=== PATIENT | female | born 1980 | race Two or more races ===

== ENCOUNTER 2022-03-12 10:44 | Emergency (ER) | payer MEDICAID ==
[~2022-03-12] VITALS: Ht 127 cm; Wt 68.1 kg
[2022-03-12 10:56] VITALS: BP 137/75
[2022-03-12 11:21] LABS: Basophils # (auto) 0.1 10 ^3/uL (0-0.2); Basophils % (auto) 0.8 % (0.0-2.0); Eosinophils # (auto) 0.2 10 ^3/uL (0-0.8); Eosinophils % (auto) 2.2 % (0.0-7.0); Hematocrit 39.3 % (36.0-46.0); Hemoglobin 12.9 g/dL (12.2-16.2); Lymphocytes # (auto) 1.9 10 ^3/uL (0.4-5.4); Lymphocytes % (auto) 21.4 % (10.0-50.0); Mean Corpuscular Hemoglobin 28.5 pg (28.0-32.0); Mean Corpuscular Hgb Conc. 32.8 g/dL (32.0-36.0); Mean Corpuscular Volume 86.8 fL (80.0-100.0); Monocytes # (auto) 0.6 10 ^3/uL (0-1.3); Monocytes % (auto) 6.5 % (0.0-12.0); Neutrophils # (auto) 6.1 10 ^3/uL (1.6-8.6); Neutrophils % (auto) 69.1 % (37.0-80.0); Nucleated Red Blood Cells % 0.1 %; Red Blood Cells 4.53 10^6/uL (4.0-5.20); Red Cell Distribution Width 14.9 % (11.8-14.3); White Blood Cell 8.8 10^3/uL (4.4-10.8)
== END 2022-03-12 15:26 | disposition home or self-care (01) ==
LOC: ER 10:46
DX: O20.0 Threatened abortion (principal); Z3A.00 Weeks of gestation of pregnancy not specified
CPT/HCPCS: 36415; 76801; 76817; 84702; 85025

== ENCOUNTER 2022-04-04 23:14 | Emergency (ER) | payer MEDICAID ==
[~2022-04-04] VITALS: Ht 152.4 cm; Wt 150.0 kg
[2022-04-05 00:42] LABS: Urine Blood 3+ /uL (Negative); Urine Specific Gravity 1.009 (1.001-1.035)
[2022-04-05 00:53] LABS: Urine Bacteria FEW /hpf (None Seen)
[2022-04-05 02:13] LABS: Basophils # (auto) 0.1 10 ^3/uL (0-0.2); Basophils % (auto) 0.6 % (0.0-2.0); Eosinophils # (auto) 0.2 10 ^3/uL (0-0.8); Eosinophils % (auto) 2.5 % (0.0-7.0); Hematocrit 36.6 % (36.0-46.0); Lymphocytes # (auto) 2.1 10 ^3/uL (0.4-5.4); Lymphocytes % (auto) 24.2 % (10.0-50.0); Mean Corpuscular Hemoglobin 28.1 pg (28.0-32.0); Mean Corpuscular Hgb Conc. 32.9 g/dL (32.0-36.0); Mean Corpuscular Volume 85.4 fL (80.0-100.0); Monocytes # (auto) 0.6 10 ^3/uL (0-1.3); Monocytes % (auto) 6.4 % (0.0-12.0); Neutrophils # (auto) 5.8 10 ^3/uL (1.6-8.6); Neutrophils % (auto) 66.3 % (37.0-80.0); Nucleated Red Blood Cells % 0.1 %; Red Blood Cells 4.29 10^6/uL (4.0-5.20); Red Cell Distribution Width 14.7 % (11.8-14.3); White Blood Cell 8.7 10^3/uL (4.4-10.8)
[2022-04-05 02:28] LABS: INR 0.95 (0.9-1.15); Partial Thromboplastin Time 25.9 sec (24.6-33.4)
[2022-04-05 02:30] LABS: Albumin 3.6 g/dL (3.4-5.0); BUN/Creatinine Ratio 14.1; Calcium 9.1 mg/dL (8.5-10.1)
[2022-04-05 02:32] LABS: Bilirubin, Total 0.2 mg/dL (0.2-1.0); Total Protein 7.4 g/dL (6.4-8.2)
[2022-04-05 03:42] VITALS: BP 133/75
[2022-04-05 04:01] LABS: Alcohol, Urine < 3.0 mg/dL (0-10); Amphetamine Screen, Urine NEGATIVE (NEGATIVE); Barbiturate Scree,Urine NEGATIVE (NEGATIVE); Benzodiazephine Screen, Urine NEGATIVE (NEGATIVE); Cannabinoid Screen, Urine NEGATIVE (NEGATIVE); Cocaine Screen, Urine NEGATIVE (NEGATIVE); Opiate Scree,Urine NEGATIVE (NEGATIVE); Phencyclidine Screen, Urine NEGATIVE (NEGATIVE)
== END 2022-04-05 07:36 | disposition home or self-care (01) ==
LOC: ER 23:14
DX: O02.81 Inappropriate change in quantitative human chorionic gonadotropin (hCG) in early pregnancy (principal); Z3A.01 Less than 8 weeks gestation of pregnancy
CPT/HCPCS: 36415; 76801; 76817; 80053; 80307; 81001; 81025; 83605; 83690; 84702; 85025; 85610; 85730; 86900; 86901

== ENCOUNTER 2022-06-16 23:02 | Emergency (ER) | payer MEDICAID ==
[~2022-06-16] VITALS: Ht 152.4 cm; Wt 63.5 kg
[2022-06-16] MEDS ORDERED: IOHEXOL 350 MG/ML 100ML IJ ONE (23:42)
[2022-06-17] LABS: Basophils # (auto) 0.1 10 ^3/uL (0-0.2); Basophils % (auto) 0.7 % (0.0-2.0); Eosinophils # (auto) 0.2 10 ^3/uL (0-0.8); Hematocrit 35.9 % (36.0-46.0); Hemoglobin 12.2 g/dL (12.2-16.2); Lymphocytes # (auto) 1.9 10 ^3/uL (0.4-5.4); Lymphocytes % (auto) 19.4 % (10.0-50.0); Mean Corpuscular Hgb Conc. 33.9 g/dL (32.0-36.0); Mean Corpuscular Volume 85.4 fL (80.0-100.0); Monocytes # (auto) 0.7 10 ^3/uL (0-1.3); Monocytes % (auto) 7.2 % (0.0-12.0); Neutrophils # (auto) 7.1 10 ^3/uL (1.6-8.6); Neutrophils % (auto) 70.7 % (37.0-80.0); Red Blood Cells 4.21 10^6/uL (4.0-5.20); Red Cell Distribution Width 15.1 % (11.8-14.3)
[2022-06-17 00:17] LABS: Albumin 3.6 g/dL (3.4-5.0); BUN/Creatinine Ratio 12.5; Calcium 9.4 mg/dL (8.5-10.1)
[2022-06-17 00:20] LABS: Bilirubin, Total 0.2 mg/dL (0.2-1.0); Total Protein 6.9 g/dL (6.4-8.2)
[2022-06-17] MEDS ORDERED: IOHEXOL 350 MG/ML 100ML IJ ONE (00:31)
[2022-06-17 02:28] LABS: Urine Bacteria FEW /hpf (None Seen); Urine Blood Negative /uL (Negative); Urine WBC 2 /hpf (0 - 5)
[2022-06-17 02:34] LABS: Urine Specific Gravity > 1.050 (1.001-1.035)
[2022-06-17 08:00] VITALS: BP 103/63
== END 2022-06-17 08:48 | disposition left against medical advice (07) ==
LOC: ER 23:02 → EDBD 23:02 → ER 06-17 08:48
DX: R55 Syncope and collapse (principal); R07.89 Other chest pain
CPT/HCPCS: 36415; 70450; 71045; 71260; 74177; 80053; 81001; 83690; 84484; 85025; 93005; 99285; Q9967

== ENCOUNTER 2024-06-28 20:58 | Emergency (ER) | payer MEDICAID ==
[~2024-06-28] VITALS: Ht 152.4 cm; Wt 70.5 kg
[2024-06-28 21:51] VITALS: BP 141/83; PULSE 95; RESP 12; O2SAT 98
[2024-06-28 22:49] VITALS: TEMP 99.5
[2024-06-28] MEDS: DexAMETHasone SOD PHOS 10MG/1ML VIAL INJ IM ONE (23:28)
[2024-06-28] MEDS ORDERED: COROSUS RIGHT EAR (23:37)
--- NOTE | 2024-06-28 23:37 | ED.PDOC ---
Eye-HPI HPI Comments T PRESENTED TO ED FOR RIGHT EARACHE X2 DAYS. PT DENIED EAR DISCHARGE OR HEARING CHANGES. REDNESS NOTED TO RIGHT EAR. COUGH X1 WEEK. Chief Complaint: Earache Time Seen by MD: 21:03 Reviewed Notes: Nurses Notes, Medications, Allergies Allergies: Coded Allergies: NO KNOWN ALLERGIES (Unverified , 03/12/22) Information Source: Patient Mode of Arrival: Ambulatory Past Medical History PAST MEDICAL HISTORY: Denies Surgical History: Denies all surgeries POLICE BOOKING OFFICER History: No Pertinent POLICE BOOKING OFFICER History Family History Family History: Reviewed,noncontributory to illness Social History Smoker: Non-Smoker Alcohol: Denies ETOH Use Drugs: Denies Drug Use Lives In: Home Constitutional: denies: chills, diaphoresis, fatigue, fever, malaise, sweats, weakness, others EENTM: reports: ear pain; denies: blurred vision, double vision, ear bleeding, ear discharge, ear drainage, ear ringing, eye pain, eye redness, hearing loss, mouth pain, mouth swelling, nasal discharge, nose bleeding, nose congestion, nose pain, photophobia, tearing, throat pain, throat swelling, voice changes, others Respiratory: reports: cough; denies: hemoptysis, orthopnea, SOB at rest, shortness of breath, SOB with excertion, stridor, wheezing, others Cardiovascular: denies: chest pain, dizzy spells, diaphoresis, Dyspnea on exertion, edema, irregular heart beat, left arm pain, lightheadedness, palpitations, PND, syncope, others Gastrointestinal: denies: abdomen distended, abdominal pain, blood streaked bowels, constipated, diarrhea, dysphagia, difficulty swallowing, hematemesis, melena, nausea, poor appetite, poor fluid intake, rectal bleeding, rectal pain, vomiting, others Genitourinary: denies: abnormal vagina bleeding, burning, dyspareunia, dysuria, flank pain, frequency, hematuria, incontinence, pain, , vagina discharge, urgency, others Neurological: denies: dizziness, fainting, headache, left sided numbness, left sided weakness, numbness, paresthesia, pre-existing deficit, right sided numbness, right sided weakness, seizure, speech problems, tingling, tremors, weakness, others Musculoskeletal: denies: back pain, gout, joint pain, joint swelling, muscle pain, muscle stiffness, neck pain, others Integumetry: denies: bruises, change in color, change in hair/nails, dryness, laceration, lesions, lumps, rash, wounds, others Allergic/Immunocompromised: denies: Difficulty Healing, Frequent Infections, Hives, Itching, others Hematologic/Lymphatic: denies: anemia, blood clots, easy bleeding, easy bruising, swollen glands, others Endocrine: denies: excessive hunger, excessive sweating, excessive thirst, excessive urination, flushing, intolerance to cold, intolerance to heat, unexplained weight gain, unexplained weight loss, others Psychiatric: denies: anxiety, bipolar disorder, depression, hopeless, panic disorder, schizophrenia, sleepless, suicidal, others Physical Exam General Appearance: No Apparent Distress, Normal HEENT: Pharynx Normal, TMs Normal, Other (LEFT EAR CANAL ADDENDUM THIS WITH ERYTHEMA NO NOTED DRAINAGE TM INTACT WITH NO REDNESS OR BULGING) Neck: Full Range of Motion, Non-Tender Respiratory: Lungs Clear, No Respiratory Distress, Normal Breath Sounds Cardiovascular: No Edema, No JVD, No Murmur, No Gallop, Normal Peripheral Puls es, Regular Rate/Rhythm Breast Exam: Deferred Gastrointestinal: No Organomegaly, Non Tender, No Pulsatile Mass, Normal Bowel Sounds, Soft Genitalia: Deferred Pelvic: Deferred Rectal: Deferred Extremities: Normal capillary refill, Normal inspection, Normal range of motion, Non-tender, No pedal edema Musculoskeletal : Apperance: Normal Neurologic: Alert, director home II-XII nml as Tested, No Motor Deficits, Normal Affect, Normal Mood, No Sensory Deficits Cerebellar Function: Normal Reflexes: Normal Skin: Dry, Normal Color, Warm Lymphatic: No Adenopathy Was a procedure done? Was a procedure done?: No EENT DIFF Eye: N/A Ear: Cerumen Impaction, Foreign Body, Barotrauma, Otitis Media, Perforation X-Ray, Labs, Meds, VS Vital Signs Date Time Temp Pulse Resp B/P (MAP) Pulse Ox O2 Delivery O2 Flow Rate FiO2 06/28/24 22:49 99.5 99.5 06/28/24 21:51 99.3 95 12 141/83 (102) 98 99.3 06/28/24 21:51 99.3 95 12 141/83 (102) 98 06/28/24 21:51 Room Air X-Ray, Labs, Meds, VS Comment PATIENT GIVEN DECADRON FOR THE PAIN. TOLERATED WELL REQUESTING DISCHARGE AT THIS TIME. SCRIPT ANTIBIOTIC DROPS HER PHARMACY. CRZA-XPD-GBAUAAP TYLENOL OR MOTRIN NEEDED FOR PAIN OR FEVER. FOLLOW UP WITH PCP IN 1-2 DAYS ER RETURN PRECAUTIONS GIVEN PATIENT INDICATES UNDERSTANDING AGREES WITH DISCHARGE PLAN OF CARE ADVISED TO AVOID UNDER WATER ACTIVITY WHILE WITH FEVER AND INFECTION Time of 1ST Reevaluation: 23:32 Reevaluation 1ST: Improved Patient Education/Counseling: Diagnosis, Treatment, Prognosis, Need For Follow Up Family Education/Counseling: No Family Present Departure 1 Departure Time of Disposition: 23:32 Impression: Primary Impression: Otitis externa Qualified Codes: H60.501 - Unspecified acute noninfective otitis externa, right ear Disposition: HOME / SELF CARE / HOMELESS Condition: Stable e-Prescriptions Gclilpmz-Lznszkubj-Ai (Otic) (Cortisporin Otic Susp) [address] 4 DROP RIGHT EAR TID for 10 Days, #10 ML Prov: TOY STEIN 06/28/24 Discharged With: Self Critical Care Note Critical Care Time?: No Stability Stability form required: TOY Barajas Jun 28, 2024 23:37
== END 2024-06-28 23:54 | disposition home or self-care (01) ==
LOC: ER 20:58
DX: H60.91 Unspecified otitis externa, right ear (principal)
CPT/HCPCS: 96372; 99283; J1100

== ENCOUNTER 2024-06-30 22:44 | Emergency (ER) | payer MEDICAID ==
[~2024-06-30] VITALS: Ht 165.1 cm; Wt 72.3 kg
[~2024-06-30 22:44] MED LIST: COROSUS RIGHT EAR
--- NOTE | 2024-07-01 01:23 | ED.PDOC ---
Eye-HPI HPI Comments EARACHE FOR 5 DAYS, SHE WAS SEEN HERE ON TUESDAY, MEDS ARE NOT HELPING. WAS PRESCRIBED CORTISPORIN ANTIBIOTIC EARDROPS HOWEVER HAS ONLY BEEN ON IT FOR 2-3 DAYS COMPLETE DOSES 7-10 DAYS. 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 06/28/24 Information Source: Patient Mode of Arrival: Ambulatory Past Medical History PAST MEDICAL HISTORY: Denies Surgical History: Denies all surgeries MALTSTER History: No Pertinent MALTSTER History Family History Family History: Reviewed,noncontributory to illness Social History Smoker: Non-Smoker Alcohol: Denies ETOH Use Drugs: Denies Drug Use Lives In: Home Constitutional: denies: chills, diaphoresis, fatigue, fever, malaise, sweats, weakness, others EENTM: reports: ear pain; denies: blurred vision, double vision, ear bleeding, ear discharge, ear drainage, ear ringing, eye pain, eye redness, hearing loss, mouth pain, mouth swelling, nasal discharge, nose bleeding, nose congestion, nose pain, photophobia, tearing, throat pain, throat swelling, voice changes, others Respiratory: denies: cough, hemoptysis, orthopnea, SOB at rest, shortness of breath, SOB with excertion, stridor, wheezing, others Cardiovascular: denies: chest pain, dizzy spells, diaphoresis, Dyspnea on exertion, edema, irregular heart beat, left arm pain, lightheadedness, palpitations, PND, syncope, others Gastrointestinal: denies: abdomen distended, abdominal pain, blood streaked bowels, constipated, diarrhea, dysphagia, difficulty swallowing, hematemesis, melena, nausea, poor appetite, poor fluid intake, rectal bleeding, rectal pain, vomiting, others Genitourinary: denies: abnormal vagina bleeding, burning, dyspareunia, dysuria, flank pain, frequency, hematuria, incontinence, pain, , vagina discharge, urgency, others Neurological: denies: dizziness, fainting, headache, left sided numbness, left sided weakness, numbness, paresthesia, pre-existing deficit, right sided numbness, right sided weakness, seizure, speech problems, tingling, tremors, weakness, others Musculoskeletal: denies: back pain, gout, joint pain, joint swelling, muscle pain, muscle stiffness, neck pain, others Integumetry: denies: bruises, change in color, change in hair/nails, dryness, laceration, lesions, lumps, rash, wounds, others Allergic/Immunocompromised: denies: Difficulty Healing, Frequent Infections, Hives, Itching, others Hematologic/Lymphatic: denies: anemia, blood clots, easy bleeding, easy bruising, swollen glands, others Endocrine: denies: excessive hunger, excessive sweating, excessive thirst, excessive urination, flushing, intolerance to cold, intolerance to heat, une xplained weight gain, unexplained weight loss, others Psychiatric: denies: anxiety, bipolar disorder, depression, hopeless, panic disorder, schizophrenia, sleepless, suicidal, others Physical Exam General Appearance: No Apparent Distress, Normal HEENT: Pharynx Normal, TMs Normal, Other Neck: Full Range of Motion, Non-Tender Respiratory: Chest Non-Tender, Lungs Clear, No Accessory Muscle Use, No Respiratory Distress, Normal Breath Sounds Cardiovascular: No Edema, No JVD, No Murmur, No Gallop, Normal Peripheral Pulses, Regular Rate/Rhythm Breast Exam: Deferred Gastrointestinal: No Organomegaly, Non Tender, No Pulsatile Mass, Normal Bowel Sounds, Soft Genitalia: Deferred Pelvic: Deferred Rectal: Deferred Extremities: No calf tenderness, Normal capillary refill, Normal inspection, Normal range of motion, Non-tender, No pedal edema Musculoskeletal : Apperance: Normal Neurologic: Alert, ui developer with angular js II-XII nml as Tested, No Motor Deficits, Normal Affect, Normal Mood, No Sensory Deficits Cerebellar Function: Normal Reflexes: Normal Skin: Dry, Normal Color, Warm Lymphatic: No Adenopathy Was a procedure done? Was a procedure done?: No EENT DIFF Eye: N/A Ear: Foreign Body, Otitis Externa, Barotrauma, Otitis Media, Perforation, Pharyngitis, TMJ Syndrome X-Ray, Labs, Meds, VS Vital Signs Date Time Temp Pulse Resp B/P (MAP) Pulse Ox O2 Delivery O2 Flow Rate FiO2 3/9/25 01:35 98.9 74 17 122/81 (95) 97 98.9 07/01/24 01:35 74 17 97 Room Air 06/30/24 23:15 98.4 81 18 137/82 (100) 81 Current Medications Medications (Trade) Dose Ordered Sig/Pamella Route Start Time Stop Time Status Last Admin Ceftriaxone Sodium (Rocephin) 1,000 mg ONCE ONCE IM 07/01/24 01:30 07/01/24 01:31 DC 07/01/24 01:38 Dexamethasone Sodium Phosphate (Decadron Injection) 10 mg ONCE ONCE IM 07/01/24 01:30 07/01/24 01:31 DC 07/01/24 01:38 X-Ray, Labs, Meds, VS Comment PATIENT GIVEN DECADRON 10 MG IM FOR THE PAIN AND SWELLING TO ACCOMMODATE ANT IBIOTIC DROPS. ROCEPHIN 1 G IM REPORTS IMPROVEMENT IN PAIN. CONTINUE ANTIBIOTIC DROPS PRESCRIBED. FOLLOW UP WITH YOUR PCP IN 2-3 DAYS FOR RE- EVALUATION OF THE EAR [id number]-GXM-TIGSIID TYLENOL OR MOTRIN NEEDED FOR PAIN OR FEVER PER LABELED DOSING INSTRUCTIONS. AVOID UNDER WATER ACTIVITIES WHILE WITH INFECTION. ER RETURN PRECAUTIONS GIVEN PATIENT INDICATES UNDERSTANDING AGREES WITH DISCHARGE PLAN OF CARE. Time of 1ST Reevaluation: 03:05 Reevaluation 1ST: Improved Patient Education/Counseling: Diagnosis, Treatment, Prognosis, Need For Follow Up Family Education/Counseling: No Family Present Departure 1 Departure Time of Disposition: 03:05 Impression: Primary Impression: Otitis externa Qualified Codes: H60.501 - Unspecified acute noninfective otitis externa, right ear Disposition: HOME / SELF CARE / HOMELESS Condition: Stable Discharged With: Other (SON) Critical Care Note Critical Care Time?: No Stability Stability form required: TOY Barajas Jul 01, 2024 01:23
[2024-07-01 01:35] VITALS: BP 122/81; PULSE 74; RESP 17; TEMP 98.9; O2SAT 97
[2024-07-01] MEDS: DexAMETHasone SOD PHOS 10MG/1ML VIAL INJ IM ONE (01:38)
[2024-07-01] MEDS: cefTRIAXone SOD 1,000 MG VL IM ONE (01:38)
== END 2024-07-01 01:47 | disposition home or self-care (01) ==
LOC: ER 22:44
DX: H60.91 Unspecified otitis externa, right ear (principal)
CPT/HCPCS: 96372; 99284; J0696; J1100

== ENCOUNTER 2024-07-08 20:52 | Emergency (ER) | payer MEDICAID ==
[~2024-07-08] VITALS: Ht 175.3 cm; Wt 59.1 kg
[2024-07-08 21:23] LABS: Basophils # (auto) 0.1 10 ^3/uL (0-0.2); Basophils % (auto) 1.1 % (0.0-2.0); Eosinophils # (auto) 0.3 10 ^3/uL (0-0.8); Eosinophils % (auto) 2.5 % (0.0-7.0); Hematocrit 36.4 % (36.0-46.0); Lymphocytes # (auto) 2.5 10 ^3/uL (0.4-5.4); Lymphocytes % (auto) 19.5 % (10.0-50.0); Mean Corpuscular Hemoglobin 27.2 pg (28.0-32.0); Mean Corpuscular Volume 82.4 fL (80.0-100.0); Monocytes # (auto) 0.5 10 ^3/uL (0-1.3); Monocytes % (auto) 4.3 % (0.0-12.0); Neutrophils # (auto) 9.2 10 ^3/uL (1.6-8.6); Neutrophils % (auto) 72.6 % (37.0-80.0); Platelet Count (auto) 301 10^3/uL (140-450); Red Blood Cells 4.41 10^6/uL (4.0-5.20); Red Cell Distribution Width 14.7 % (11.8-14.3); White Blood Cell 12.6 10^3/uL (4.4-10.8)
--- NOTE | 2024-07-08 21:24 | ED.PDOC ---
GI ASSESSMENT HPI Comments 44 y/o F, with a history of uncontrolled DM, is BIBA for c/o abdominal pain, today. Per EMS report, patient is a Ethiopian speaker and endorses on sudden onset of 11/01, burning pain, this evening, after eating "soup and eggs" at around 1900. Son on scene reported to EMS on patient commenting on being weak and dizzy, lately, amidst no known additional sick contact at home. Patient was noted to have diffused palpable pain, with blood glucose levels and vitals within normal limits and stable. Upon arrival to ED and time of assessment, patient endorses on pain being localized to her epigastric region only. She denies any nausea, vomiting, diarrhea, urinary symptoms, constipation, fever, chills, or other associated symptoms or modifiers at this time. Chief Complaint: Abdominal Pain Time Seen by MD: 21:05 Reviewed Notes: Nurses Notes, Medications, Allergies Allergies: Coded Allergies: NO KNOWN ALLERGIES (Unverified , 03/12/22) Home Meds Discontinued Scripts Ldckwsst-Smyikjexm-Gu (Otic) (Cortisporin Otic Susp) [address], 4 DROP RIGHT EAR TID for 10 Days, #10 ML Prov:TOY STEIN [facility] 06/28/24 Information Source: Patient Mode of Arrival: EMS Timing: Hours Duration: Since onset Prehospital treatment: 12 Lead EKG, Accucheck, Passenger Locomotive Engineer Past Medical History PAST MEDICAL HISTORY: DM (uncontrolled ) Surgical History: Denies all surgeries CORRIDOR REDEVELOPMENT MANAGER History: No Pertinent CORRIDOR REDEVELOPMENT MANAGER History Family History Family History: Reviewed,noncontributory to illness Social History Smoker: Non-Smoker Alcohol: Denies ETOH Use Drugs: Denies Drug Use Lives In: Home Gastrointestinal: reports: abdominal pain All Other Systems: Reviewed and Negative (negative unless otherwise stated above or in HPI) Physical Exam General Appearance: No Apparent Distress, Thin HEENT: Normal ENT Inspection, Pharynx Normal, TMs Normal Neck: Full Range of Motion, Non-Tender, Normal, Normal Inspection Respiratory: Chest Non-Tender, Lungs Clear, No Accessory Muscle Use, No Respiratory Distress, Normal Breath Sounds Cardiovascular: No Edema, No JVD, No Murmur, No Gallop, Normal Peripheral Pulses, Regular Rate/Rhythm Breast Exam: Deferred Gastrointestinal: Epigastric (tenderness ), No Organomegaly, No Pulsatile Mass, Normal Bowel Sounds, Soft, Tenderness (epigastric region ) Genitalia: Deferred Pelvic: Deferred Rectal: Deferred Extremities: No calf tenderness, Normal capillary refill, Normal inspection, Normal range of motion, Non-tender, No pedal edema Musculoskeletal : Apperance: Normal Neurologic: Alert, foot setter II-XII nml as Tested, No Motor Deficits, Normal Affect, Normal Mood, No Sensory Deficits Cerebellar Function: Normal Reflexes: Normal Skin: Dry, Normal Color, Warm Lymphatic: No Adenopathy Was a procedure done? Was a procedure done?: No GI differential Dx Differential Diagnosis: Cholangitis, Cholecystitis, Gastritis/PUD, Gastroenteritis, UTI, Electrolyte Imbalance, Food Poisoning, , Viral, Other (PUD, GERD) X-Ray, Labs, Meds, VS Vital Signs Date Time Temp Pulse Resp B/P (MAP) Pulse Ox O2 Delivery O2 Flow Rate FiO2 07/09/24 00:30 98.1 67 17 124/68 (86) 100 98.1 07/08/24 22:50 98 17 127/89 07/08/24 21:58 98.3 74 18 116/54 (74) 97 98.3 07/08/24 21:58 74 18 96 Room Air* 0 21 07/08/24 21:57 74 18 116/58 07/08/24 21:02 98.7 60 14 140/80 (100) 98 98.7 07/08/24 20:57 66 Lab Test 07/08/24 21:15 Range/Units White Blood Count 12.6 H 4.4-10.8 10^3/uL Red Blood Count 4.41 4.0-5.20 10^6/uL Hemoglobin 12.0 L 12.2-16.2 g/dL Hematocrit 36.4 36.0-46.0 % Mean Corpuscular Volume 82.4 80.0-100.0 fL Mean Corpuscular Hemoglobin 27.2 L 28.0-32.0 pg Mean Corpuscular Hemoglobin Concent 33.0 32.0-36.0 g/dL Red Cell Distribution Width 14.7 H 11.8-14.3 % Platelet Count 301 140-450 10^3/uL Mean Platelet Volume 8.3 6.9-10.8 fL Neutrophils (%) (Auto) 72.6 37.0-80.0 % Lymphocytes (%) (Auto) 19.5 10.0-50.0 % Monocytes (%) (Auto) 4.3 0.0-12.0 % Eosinophils (%) (Auto) 2.5 0.0-7.0 % Basophils (%) (Auto) 1.1 0.0-2.0 % Neutrophils # (Auto) 9.2 H 1.6-8.6 10 ^3/uL Lymphocytes # (Auto) 2.5 0.4-5.4 10 ^3/uL Monocytes # (Auto) 0.5 0-1.3 10 ^3/uL Eosinophils # (Auto) 0.3 0-0.8 10 ^3/uL Basophils # (Auto) 0.1 0-0.2 10 ^3/uL Nucleated Red Blood Cells 0.0 % Sodium Level 139 136-145 mmol/L Potassium Level 3.5 3.5-5.1 mmol/L Chloride Level 104 98-107 mmol/L Carbon Dioxide Level 26 20-31 mmol/L Anion Gap 9 5-15 Blood Urea Nitrogen 10 9-23 mg/dL Creatinine 0.59 0.550-1.02 mg/dL Glomerular Filtration Rate Calc 112 >90 mL/min BUN/Creatinine Ratio 16.9 10.0-20.0 Serum Glucose 188 H 74-106 mg/dL Calcium Level 10.0 8.7-10.4 mg/dL Total Bilirubin 0.4 0.2-1.0 mg/dL Aspartate Amino Transferase (AST) 50 H 13-40 U/L Alanine Aminotransferase (ALT) 33 7-40 U/L Alkaline Phosphatase 109 46-116 U/L Total Protein 7.2 5.7-8.2 g/dL Albumin 4.5 3.2-4.8 g/dL Lipase 42 12-53 U/L Current Medications Medications (Trade) Dose Ordered Sig/Pamella Route Start Time Stop Time Status Last Admin Sodium Chloride 1,000 ml @ 1,000 mls/hr Q1H ONCE IV 07/08/24 21:15 07/08/24 22:14 DC 07/08/24 21:56 Pantoprazole Sodium (Protonix) 40 mg ONCE ONCE IV 07/08/24 21:15 07/08/24 21:16 DC 07/08/24 21:57 Ondansetron HCl (Zofran) 4 mg ONCE ONCE IV 07/08/24 21:15 07/08/24 21:16 DC 07/08/24 21:57 Morphine Sulfate 4 mg ONCE ONCE IV 07/08/24 21:15 07/08/24 21:16 DC 07/08/24 21:57 Time of 1ST Reevaluation: 21:35 Reevaluation 1ST: Unchanged Patient Education/Counseling: Diagnosis, Treatment Family Education/Counseling: No Family Present Additional Information Previous visit documents reviewed: June 16, 2022 encounter for abdominal pain The following tests were ordered, and results were reviewed by me: UA, lipase, CMP, CBC Additional Information was gathered from interviewing the following independent historians: EMS I reviewed and agreed with the following test results read by other providers: I discussed treatment and results with medical personnel and: Patient Departure 1 Departure Time of Disposition: 00:52 (Patient presented with abdominal pain that was concerning for possible appendicits, gastritis, cholecystitis, colitis, gastroenteritis, or orther possible surgical emergency. Data: 1. I ordered and reviewed the result of at least 3 labs including a CBC, BMP, and Urinalysis. 2. I independently interpreted the following tests: CT Abdoment and Pelvis is concerning for gastroenteritis .Risk:This patient has a high risk of morbidity due to further diagnostic testing or treatment and may suffer from an acute abdominal process disorder. Fortunately workup reveals likely gastroenteritis and patient can be safely discharged to home with outpatient follow up.) Impression: Primary Impression: Gastroenteritis Additional Impressions: Abdominal pain Qualified Codes: R10.84 - Generalized abdominal pain Nausea and vomiting Qualified Codes: R11.12 - Projectile vomiting Disposition: 01 HOME / SELF CARE / HOMELESS Condition: Stable Additional Instructions: You likely have gastroenteritis. It is important to stay well hydrated and well rested. This usually resolves within 1 week. If your symptoms worsen or you have any other concerns please return to the ER. Discharged With: Self Critical Care Note Critical Care Time?: Yes Critical care comment: Intractable abdominal pain Authorized and Performed by: Eli Jaime MD Total critical care time: Approximately 32 minutes Due to a high probability of clinically significant, life threatening deterioration, the patient required my highest level of preparedness to intervene emergently and I personally spent this critical care time directly and personally managing the patient. This critical care time included obtaining a history; examining the patient; pulse oximetry; ordering and review of studies; arranging urgent treatment with development of a management plan; evaluation of patient's response to treatment; frequent reassessment; and, discussions with other providers. This critical care time was performed to assess and manage the high probability of imminent, life-threatening deterioration that could result in multi-organ failure. It was exclusive of separately billable procedures and treating other patients and teaching time. Please see my other sections and the rest of the note for further information on patient assessment and treatment. Stability Stability form required: No I personally scribed for ELI JAIME MD ([email or web address]) on 07/08/24 at 21:24. Electronically submitted by Nate Carter ([email or web address]). ELI JAIME MD Jul 08, 2024 21:24
[2024-07-08 21:40] LABS: Alanine Aminotransferase 33 U/L (7-40); Alkaline Phosphatase 109 U/L (46-116); Anion Gap 9 (5-15); BUN/Creatinine Ratio 16.9 (10.0-20.0); Blood Urea Nitrogen 10 mg/dL (9-23); Carbon Dioxide 26 mmol/L (20-31); Chloride 104 mmol/L (98-107); Lipase 42 U/L (12-53); Sodium 139 mmol/L (136-145); Total Protein 7.2 g/dL (5.7-8.2)
[2024-07-08 21:41] LABS: Albumin 4.5 g/dL (3.2-4.8); Aspartate Aminotransferase 50 U/L (13-40); Bilirubin, Total 0.4 mg/dL (0.2-1.0); Glucose 188 mg/dL (74-106); Potassium 3.5 mmol/L (3.5-5.1)
[2024-07-08] MEDS: SODIUM CHLORIDE 0.9% 1,000 ML IV ONE (21:56)
[2024-07-08] MEDS: PANTOPRAZOLE 40 MG/10 ML VIAL INJ IV ONE (21:57)
[2024-07-08] MEDS: MORPHINE SULFATE 4 MG/ML SYR/VIAL IV ONE (21:57)
[2024-07-08] MEDS: ONDANSETRON HCL 4 MG/2 ML VIAL IV ONE (21:57)
[2024-07-08 21:58] VITALS: PULSE 74; RESP 18; O2SAT 96
[2024-07-09] MEDS: IOHEXOL 300 MG/ML 100ML BOTTLE IJ ONE (00:28)
[2024-07-09 00:30] VITALS: BP 124/68; PULSE 67; RESP 17; TEMP 98.1; O2SAT 100
--- NOTE | 2024-07-09 00:39 | DVH ---
Exam: CT CT AB PEL WITH IV CON ONLY History: abdominal pain Comparison Study: None available at time of dictation. Technique: Multidetector spiral CT of the abdomen and pelvis was performed from lung bases to pubic s ymphysis. Intravenous contrast was administered during this examination. Portal venous imaging was o btained. Axial, coronal and sagittal multiplanar reformats were performed by the technologist on a [employer] workstation. Radiation Dose : 1. Abdomen/Pelvis: CTDIvol 10.2 mGy, DLP 596.48 mGy*cm. Findings: Lung Bases: No acute or significant lung base finding. Normal heart size. No pleural or pericardial effusion. Liver: The liver is normal in size. No focal lesions. Normal hepatic vascular enhancement. Gallbladder and Biliary Tree: Unremarkable Spleen: Unremarkable Pancreas: The pancreas is normal in appearance without focal lesions or abnormal enhancement. Adrenal Glands: Unremarkable Kidneys: Kidneys demonstrate normal symmetric enhancement without focal lesions, calculi or hydroneph rosis. Bladder: Unremarkable Bowel: The stomach is grossly normal in appearance. Small bowel and colon are normal in caliber and d istribution. Normal appendix is visualized in the right lower quadrant without findings of appendicit is. Ascites: Absent Lymphadenopathy: No mesenteric, retroperitoneal or periportal lymphadenopathy. Abdominal Wall and Mesentery: Unremarkable. Vasculature: The visualized abdominal aorta is normal in size and caliber. Abdominal and pelvic vess els demonstrate normal enhancement. Pelvic Organs: Unremarkable Musculoskeletal: No aggressive focal bony lesions, acute fractures or dislocation. IMPRESSION: No acute abdominal or pelvic finding.
--- NOTE | 2024-07-09 13:18 | ECG ---
[facility] Test Date: 2024-07-08 Test Time: 20:57:49 Pat Name: ALLY CASTILLO Department: ED Room: Gender: F Log Chain Feeder: WESTLEY : 1980 Requested By: ELI ALEXANDRA Order Number: [id number] Reading MD: Bryce Sargent Measurements Intervals [place] Rate: 66 P: 47 [place]: 183 QRS: 75 QRSD: 105 T: 59 QT: 427 QTc: 448 Interpretive Statements Sinus rhythm Low voltage, precordial leads Borderline T abnormalities, anterior leads Electronically Signed On 07-11-2024 22:32:06 PDT by Bryce Sargent Please click the below link to view image of tracing.
== END 2024-07-09 02:00 | disposition home or self-care (01) ==
LOC: EDBD 20:52 → ER 20:52
DX: K52.9 Noninfective gastroenteritis and colitis, unspecified (principal); R10.84 Generalized abdominal pain; R11.2 Nausea with vomiting, unspecified; E11.9 Type 2 diabetes mellitus without complications
CPT/HCPCS: 36415; 74177; 80053; 83690; 85025; 93005; 96361; 96374; 96375; 99285; J2270; J2405; J2470; J7030; Q9967